=== PATIENT | male | born 1995 | race Caucasian/White ===

== ENCOUNTER 2017-02-03 12:30 | Emergency (ER) | payer MEDICAID ==
[~2017-02-03] VITALS: Ht 182.9 cm; Wt 59.7 kg
[2017-02-03 12:32] VITALS: BP 115/73
== END 2017-02-03 14:27 | disposition home or self-care (01) ==
LOC: ED 13:00
DX: S93.491A Sprain of other ligament of right ankle, initial encounter (principal); F17.210 Nicotine dependence, cigarettes, uncomplicated; X58.XXXA Exposure to other specified factors, initial encounter; Y93.89 Activity, other specified; Y99.0 Civilian activity done for income or pay; Y92.69 Other specified industrial and construction area as the place of occurrence of the external cause
CPT/HCPCS: 99284